=== PATIENT | male | born 1995 | race Two or more races ===

== ENCOUNTER 2020-01-18 10:44 | Emergency (ER) | payer MEDICAID, OTHER ==
[~2020-01-18] VITALS: Ht 170.2 cm; Wt 95.7 kg
[2020-01-18 10:50] VITALS: BP 139/78
== END 2020-01-18 11:58 | disposition home or self-care (01) ==
LOC: ER 10:44
DX: S46.912A Strain of unspecified muscle, fascia and tendon at shoulder and upper arm level, left arm, initial encounter (principal); X50.9XXA Other and unspecified overexertion or strenuous movements or postures, initial encounter; Y93.89 Activity, other specified; Y92.89 Other specified places as the place of occurrence of the external cause; Y99.8 Other external cause status